=== PATIENT | male | born 1990 | race Caucasian/White ===

== ENCOUNTER 2018-05-21 18:55 | Emergency (ER) | payer BC, OTHER ==
[2018-05-21] MEDS: IBUPROFEN 800 MG TAB PO (22:45)
== END 2018-05-22 00:59 | disposition home or self-care (01) ==
LOC: E/R 18:55
DX: S62.665A Nondisplaced fracture of distal phalanx of left ring finger, initial encounter for closed fracture (principal); W01.0XXA Fall on same level from slipping, tripping and stumbling without subsequent striking against object, initial encounter; Y92.9 Unspecified place or not applicable
CPT/HCPCS: 29130; 73140; 99283-25